=== PATIENT | male | born 1980 ===

== ENCOUNTER 2023-03-10 08:51 | Emergency (ER) | payer OTHER, SELFPAY ==
[2023-03-10 08:56] VITALS: BP 124/80; PULSE 63; RESP 18; TEMP 37.2; O2SAT 98; BMI 19.8
--- NOTE | 2023-03-10 09:29 | ED_ITS ---
HPI - Dental/Oral General Time Seen by Provider: 09:29 Date Seen: 03/10/23 Chief complaint: Dental/Oral/Mouth Injury/Pain Stated complaint: tooth pain Time Seen by Provider: 03/10/23 09:29 Source: patient and RN notes reviewed Mode of arrival: ambulatory Limitations: no limitations History of Present Illness HPI Narrative: Tejinder is a 42-year-old gentleman with recent dental surgery who comes to the [facility] for evaluation regarding increasing pain. Patient states that 3 weeks ago he had 3 teeth removed and had a number of fillings as well. He notes that at a revisit there they did pull additional 2s fragments out any also did that yesterday. He notes that in the past few days he has had increasing pain in the right upper aspect of his mouth and today his right front tooth is really causing him a lot of discomfort. He does not note any drainage any does not think he has had a fever. He has been using ibuprofen and Tylenol at home. He is requesting an antibiotic. Patient was able to identify [facility] on [address] in [place] as his dental office. He denies any allergies and any other medications at this time. Teeth map: 2 1. Tooth intact. Pain at this site. 2. Dentition missing. Pain here yesterday 3. Dentition missing. Pain here yesterday Related Data Home Medications Medication Instructions Recorded Confirmed canibus 03/10/23 Allergies Allergy/AdvReac Type Severity Reaction Status Date / Time No Known Drug Allergies Allergy Verified 03/10/23 08:55 Review of Systems 2 Status of ROS: Reports: 6 or more systems reviewed and unremarkable except as noted in History and below Const: Denies: fever or chills Eyes: Denies: blurry vision ENMT: Reports: mouth pain and swelling of lips/tongue; Denies: throat pain, throat swelling or difficulty swallowing Cardio: Denies: chest pain or shortness of breath with exertion Resp: Denies: shortness of breath GI: Denies: vomiting or difficulty swallowing Allergy/Immuno: Denies: throat swelling PFSH PFSH Social History Smoking Status: Current every day smoker What tobacco products do you use: cigarettes Smoking packs per day: 0.5 Smoking cigarettes per day: 10.0 Years smoked: 24 Smoking pack-years: 12.00 Do you use any of these nicotine containing products: None Second hand tobacco smoke exposure: No How often do you have a drink containing alcohol: monthly or less How many standard drinks containing alcohol do you have on a typical day: 1 or 2 How often do you have six or more drinks on one occasion: Never AUDIT-C Alcohol total score: 1 Non-prescribed substance use: denies use service: No Exam 2 Narrative: Exam Narrative: Alert and oriented. GCS 15. In discomfort. Face is symmetrical. There is perhaps some very subtle swelling of the right upper lip pointed out by patient. No boggy edema noted. Oral cavity shows poor dentition. Multiple areas of missing teeth. New extractions noted in right upper gum line. No drainage noted. No erythema noted. Patient complains mostly of right front tooth. He requests that I do not touch it. Examination shows no surrounding gum edema. I am able to look at the hard palate and I do not see any swelling here. Tooth does not seem to be fractured. Neck is supple without any erythema. Heart with regular rate and rhythm and lungs are clear. Const: Vital Signs, click to edit/add: Vital Signs - 24 hr 03/10/23 08:56 Temperature 98.9 F Pulse Rate [Pulse Oximeter] 63 Respiratory Rate 18 Blood Pressure [Ri ght Upper Arm] 124/80 Pulse Oximetry 98 Oxygen Delivery Me thod Room Air Documenting provider has reviewed patient's vital signs: yes Course Course ED Course: At this time differential diagnosis includes infection, cavity, nerve pain. I do not note any purulent drainage or surrounding erythema. Swelling that patient describes as very subtle in my opinion. Nevertheless, he has had Oral surgery and he is requesting antibiotic which we will baldev today. I do offer Toradol injection but he declines. I also offer ibuprofen or Tylenol and he states that he has that at home. Vital Signs Vital signs: Initial Vital Signs Temperature 98.9 F 03/10/23 08:56 Temperature Source Temporal Artery Scan 03/10/23 08:56 Pulse Rate 63 03/10/23 08:56 Pulse Rhythm Regular 03/10/23 08:56 Respiratory Rate 18 03/10/23 08:56 Blood Pressure 124/80 03/10/23 08:56 Blood Pressure Mean 94 03/10/23 08:56 Blood Pressure Position Supine 03/10/23 08:56 Pulse Oximetry 98 03/10/23 08:56 Oxygen Delivery Method Room Air 03/10/23 08:56 Vital Signs Temperature 98.9 F 03/10/23 08:56 Pulse Rate 63 03/10/23 08:56 Respiratory Rate 18 03/10/23 08:56 Blood Pressure 124/80 03/10/23 08:56 Pulse Oximetry 98 03/10/23 08:56 Oxygen Delivery Method Room Air 03/10/23 08:56 Temperature 98.9 F 03/10/23 08:56 Pulse Rate 63 03/10/23 08:56 Respiratory Rate 18 03/10/23 08:56 Blood Pressure 124/80 03/10/23 08:56 Pulse Oximetry 98 03/10/23 08:56 Oxygen Delivery Method Room Air 03/10/23 08:56 MDM - Dental/Oral MDM Narrative Medical decision making narrative: 1. Dental pain-at this time will use Augmentin 875 mg p.o. b.i.d. x7 days. Patient may discontinue this once he sees the his dentist and is advised to do so. He is to monitor and return for increased swelling, vomiting, fever and as needed. 2. Disposition-home at this time. Patient declines offers of Tylenol and ibuprofen and Toradol. Medical Records Medical records narrative: No records to view. Discharge Plan Discharge Clinical Impression: Toothache Patient Disposition: Home, Self-Care Condition: Unchanged Additional Instructions: Start Augmentin which is an antibiotic today. Continue for the full 7 days or until you see the dentist and here she tells you to stop. Ibuprofen or Tylenol as needed for discomfort. Return to the ER as needed, especially for fever, worsening swelling and as needed. Prescriptions: No Action canibus Stand Alone Forms: [employer] Info Instructions
== END 2023-03-10 09:54 | disposition home or self-care (01) ==
LOC: ED 09:45
PROVIDERS: Emergency Provider Family Medicine
DX: K08.89 Other specified disorders of teeth and supporting structures (principal)
CPT/HCPCS: 99283